=== PATIENT | male | born 1995 | race Caucasian/White ===

== ENCOUNTER 2017-01-08 20:50 | Emergency (ER) | payer BC ==
[~2017-01-08] VITALS: Ht 182.9 cm; Wt 70.3 kg
[~2017-01-08 20:50] MED LIST: AMOXIL250 MG/5 M PO; CEFDINIR300 M1 PO; CORTISPORIN (GE10 M1 OT; FERROUS SULFAT325 M2 PO; IBU800 MG PO; MEDROL 4MG. DOSE4 MG PO; PROMETHAZINE D473 ML PO; TYLENOL W/120 ML/BOT PO; ZITHROMAX Z PA250 MG PO
--- NOTE | 2017-01-08 21:15 | Emergency Room Report ---
History of Present Illness Time Seen by 2100 Presenting Problem in Triage Pt arrived:Walked Presenting Problem:HIT RIGHT FOOT ON COFFEE TABLE,C/O PAIN TO RIGHT 4 DIGIT Onset of symptoms date/time:01/08/17 or onset unknown for: Treatment Prior to Arrival: [employer] Provided by: Sepsis Risk Assessment: Temp: 98.7 B/P: MAP: Pulse: 54 Resp: 18 Recent fever? N Clinical Suspician of Infection? N Mental Status: 1 - Regular (Normal Baseline) Sepsis Risk:Low Sepsis Risk Have you (or family members/close friends) recently traveled outside the [place]? N If Yes, where/when: Have you had exposure to infectious disease within the past month? N TB? Other? Specify: Source patient, RN notes reviewed, family, old records Exam Limitations no limitations Comment acute injury to rt foot this pm - mick 4th toe Cardiac Chest Pain Chest pain indicative of cardiac No Timing/Duration this evening Severity moderate ALLERGIES Coded Allergies: No Known Allergies (06/29/15) Home Medications Reported Medications No Known Home Medications History Medical History General CAD? No Angina: No UT: No Hypertension? No Hyperlipidemia? No CHF? No DVT? No PE? No COPD? No Asthma? Yes Anemia? No GERD? No Gastric ulcers? No GI Bleed? No Hernia? No Thyroid Problems? No Hypothyroidism? No CVA? No Seizures? No Diabetes? No Renal Insuffiency? No End Stage Renal Disease? No UTI? No Stones? No BPH? No GB Disease: No Nephritic Syndrome? No Asplenia? No Hepatitis? No Sickle Cell Disease? No Arthritis? No Migraines? No Cataracts? No Glaucoma? No MRSA? No HIV? No TB? No Anxiety? No Depression? No Cancer? No More? No Immunization Hx DT/Tetanus 5-10 Years Ago Surgical Hx Previous Surgery?N Family History Family Hx Diabetes Yes Hypertension Yes Cancer Yes TB No Social History Smoking Hx Smoker: Never Smoker Tobacco: No Packs/day N/A Alcohol Alcohol: No Drugs none Review of Systems All Other Systems Reviewed and Negative Constitutional denies fever Eyes denies drainage ENT denies: ear discharge, epistaxis, throat pain. Respiratory denies cough, denies shortness of breath, denies wheezing Cardiovascular denies chest pain, denies syncope Gastrointestinal denies abdominal pain, denies diarrhea, denies vomiting Genitourinary denies: dysuria, frequency, hesitancy. Musculoskeletal see HPI, denies back pain, joint pain, joint swelling, denies neck pain Skin denies rash Psychiatric/Neurological denies headache, denies seizure Physical Exam Vital Signs Vital Signs Date Time Temp Pulse Resp B/P Pulse O2 O2 Flow FiO2 Ox Delivery Rate 01/08 2055 98.7 54 18 97 - WBC >12,000 or <4,000 or 10% bands? 2 or more SIRS Criteria Met? B/P: MAP: Creatinine >2.0? UA output<0.5ml/kg/hr for 2 hrs? Platelet count >100,000? Lactate >2.0mmol/1? INR >1.2 or PTT > than 60 sec? Evidence of Organ Dysfunction? Provider documented clinical suspician of infection? N Sepsis Criteria Count: 0 Sepsis Risk: Low Sepsis Risk General Appearance no apparent distress Eye Exam - bilateral eye PERRL, bilateral eye EOMI Ear, Nose, Throat normal ENT inspection Neck supple Respiratory Status No: respiratory distress. 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 No Results/Orders Current Medication Orders Sig/Mike Start time Last Medication Dose Route Stop Time Status Admin Ibuprofen 600 MG ONCE ONE 01/08 2100 DC 01/08 PO 01/08 Ibuprofen 0 .STK-MED ONE 01/08 2055 DC PO Orders Procedure Date/time Status FOOT-RT-3 VIEWS 01/08 2101 Active XRAY/CT/US XRAY/CT/US XRAY foot XR interpretation by reviewed by me Xray Results abnormal (fx seen) Departure Departure Time of Disposition 2112 Disposition DC Home or Self Care(routine) Clinical Impression Primary Impression: Fracture of toe of right foot Qualifiers: Encounter type: initial encounter Toe: lesser toe Fracture type: closed Phalanx: proximal Fracture alignment: displaced Qualified Code: S92.511A - Displaced fracture of proximal phalanx of right lesser toe(s), initial encounter for closed fracture Condition STABLE Referrals OWEN BEDOLLA DPM discussed with dr bedolla Patient Instructions DI for Toe Fracture Additional Instructions see podiatry in am call at [phone] Discharge Counseling Counseled pt/family regarding diagnosis, test results, medications/RX, follow up needs Prescriptions Current Visit Scripts No Known Home Medications ED Critical Care Critical Care No at 5802
--- OUTSIDE RECORDS SUMMARY | 2017-01-08 21:19 | External Medical Summary Rpt | CCD ---
Author Author , KVNG CALDERON Address Unknown Phone [email or web address] Care Team Providers Care Lighter Name Role Phone [facility] Unavailable Unavailable [id number] # [phone], [facility] [id number] # [phone] Purpose Continuity of Care Document - 04-27-2009 through 2016 Medications Na ND Rx Da Fi Fi Am Da Di Ph RX Ph St me C No te ll ll ou ys ag ar # ys at rm s nt no ma ic us Or Da si cy ia de te s n re d 00 09 01 6 30 30 RI 84 CO Ac 95 -1 -2 .0 TE 98 MM ti 51 4- 8- 00 80 UN ve 02 20 20 AI IT 59 10 11 D Y 0 PH AL AR LE MA RG CY Y & 03 93 TH 8 MA # 03 PS 93 C 00 09 01 6 30 30 RI 84 CO Ac 00 -1 -2 .0 TE 98 MM ti 60 4- 8- 00 79 UN ve 11 20 20 AI IT 73 10 11 D Y 1 PH AL AR LE MA RG CY Y & 03 93 TH 8 MA # 03 PS 93 C 00 06 01 6 0. 30 RI 83 CO Ac 08 -1 -2 24 TE 75 MM ti 51 0- 8- 0 16 UN ve 34 20 20 AI IT 10 10 11 D Y 3 PH AL AR LE MA RG CY Y & 03 93 TH 8 MA # 03 PS 93 C 00 09 01 6 30 30 RI 84 MA Ac 95 -1 -2 .0 TE 98 SH ti 51 4- 8- 00 80 BU ve 02 20 20 AI RN 59 10 11 D 0 PH AM AR Y MA B CY 03 93 8 # 03 93 00 09 01 6 30 30 RI 84 MA Ac 00 -1 -2 .0 TE 98 SH ti 60 4- 8- 00 79 BU ve 11 20 20 AI RN 73 10 11 D 1 PH AM AR Y MA B CY 03 93 8 # 03 93 00 06 01 6 0. 30 RI 83 MA Ac 08 -1 -2 24 TE 75 SH ti 51 0- 8- 0 16 BU ve 34 20 20 AI RN 10 10 11 D 3 PH AM AR Y MA B CY 03 93 8 # 03 93 00 01 01 6 30 30 RI 86 MA Ac TE 03 -2 -2 .0 TE 72 SH ti UT 70 0- 0- 00 16 BU ve O 24 20 20 AI RN 0. 33 11 11 D 15 0 PH AM % AR Y NA MA B SA CY L SP 03 RA 93 Y 8 # 03 93 00 09 12 6 30 30 RI 84 MA Ac 02 -1 -2 .0 TE 98 SH ti 45 4- 7- 00 80 BU ve 80 20 20 AI RN 09 10 10 D 0 PH AM AR Y MA B CY 03 93 8 # 03 93 00 09 12 6 30 30 RI 84 MA Ac 00 -1 -2 .0 TE 98 SH ti 60 4- 7- 00 79 BU ve 11 20 20 AI RN 73 10 10 D 1 PH AM AR Y MA B CY 03 93 8 # 03 93 00 06 12 6 0. 30 RI 83 MA Ac 08 -1 -2 24 TE 75 SH ti 51 0- 7- 0 16 BU ve 34 20 20 AI RN 10 10 10 D 3 PH AM AR Y MA B CY 03 93 8 # 03 93 FL 00 02 12 6 16 30 RI 81 MA Ac UT 05 -0 -2 .0 TE 97 SH ti IC 43 2- 7- 00 79 BU ve 27 20 20 AI RN ON 09 10 10 D E 9 PH AM UT AR Y OP MA B CY 50 03 MC 93 G 8 SP # RA 03 Y 93 00 09 12 6 30 30 RI 84 CO Ac 02 -1 -2 .0 TE 98 MM ti 45 4- 7- 00 80 UN ve 80 20 20 AI IT 09 10 10 D Y 0 PH AL AR LE MA RG CY Y & 03 93 TH 8 MA # 03 PS 93 C 00 09 12 6 30 30 RI 84 CO Ac 00 -1 -2 .0 TE 98 MM ti 60 4- 7- 00 79 UN ve 11 20 20 AI IT 73 10 10 D Y 1 PH AL AR LE MA RG CY Y & 03 93 TH 8 MA # 03 PS 93 C 00 06 12 6 0. 30 RI 83 CO Ac 08 -1 -2 24 TE 75 MM ti 51 0- 7- 0 16 UN ve 34 20 20 AI IT 10 10 10 D Y 3 PH AL AR LE MA RG CY Y & 03 93 TH 8 MA # 03 PS 93 C 00 09 11 6 30 30 RI 84 CO Ac 02 -1 -1 .0 TE 98 MM ti 45 4- 4- 00 80 UN ve 80 20 20 AI IT 09 10 10 D Y 0 PH AL AR LE MA RG CY Y & 03 93 TH 8 MA # 03 PS 93 C 00 09 11 6 30 30 RI 84 CO Ac 00 -1 -1 .0 TE 98 MM ti 60 4- 4- 00 79 UN ve 11 20 20 AI IT 73 10 10 D Y 1 PH AL AR LE MA RG CY Y & 03 93 TH 8 MA # 03 PS 93 C 00 06 11 6 0. 30 RI 83 CO Ac 1 -1 24 TE 75 MM ti 51 0- 4- 0 16 UN ve 34 20 20 AI IT 10 10 10 D Y 3 PH AL AR LE MA RG CY Y & 03 93 TH 8 MA # 03 PS 93 C 00 09 11 6 30 30 RI 84 MA Ac 02 -1 -1 .0 TE 98 SH ti 45 4- 4- 00 80 BU ve 80 20 20 AI RN 09 10 10 D 0 PH AM AR Y MA B CY 03 93 8 # 03 93 00 09 11 6 30 30 RI 84 MA Ac 1 -1 .0 TE 98 SH ti 60 4- 4- 00 79 BU ve 11 20 20 AI RN 73 10 10 D 1 PH AM AR Y MA B CY 03 93 8 # 03 93 00 06 11 6 0. 30 RI 83 MA Ac -1 24 TE 75 SH ti 51 0- 4- 0 16 BU ve 34 20 20 AI RN 10 10 10 D 3 PH AM AR Y MA B CY 03 93 8 # 03 93 FL 00 02 11 6 16 30 RI 81 MA Ac UT 05 -0 -1 .0 TE 97 SH ti IC 43 2- 4- 00 79 BU ve 27 20 20 AI RN ON 09 10 10 D E 9 PH AM UT AR Y OP MA B CY 50 03 MC 93 G 8 SP # RA 03 Y 93 AM 00 09 09 22 10 RI 85 MA Ac OX 09 -2 -2 5. TE 16 SH ti IC 34 7- 7- 00 71 BU ve IL 16 20 20 0 AI RN LI 17 10 10 D N 8 PH AM 40 AR Y 0 MA B MG CY /5 03 ML 93 8 LARIOS # SP 03 93 FL 00 02 09 6 16 30 RI 81 MA Ac UT 05 -0 -1 .0 TE 97 SH ti IC 43 2- 6- 00 79 BU ve 27 20 20 AI RN ON 09 10 10 D E 9 PH AM UT AR Y OP MA B CY 50 03 MC 93 G 8 SP # RA 03 Y 93 00 09 09 6 30 30 RI 84 MA Ac 02 -1 -1 .0 TE 98 SH ti 45 4- 4- 00 80 BU ve 80 20 20 AI RN 09 10 10 D 0 PH AM AR Y MA B CY 03 93 8 # 03 93 00 09 09 6 30 30 RI 84 MA Ac 00 -1 -1 .0 TE 98 SH ti 60 4- 4- 00 79 BU ve 11 20 20 AI RN 73 10 10 D 1 PH AM AR Y JADA B CY 03 93 8 # 03 93 00 09 09 6 30 30 RI 84 CO Ac 02 -1 -1 .0 TE 98 MM ti 45 4- 4- 00 80 UN ve 80 20 20 AI IT 09 10 10 D Y 0 PH AL AR REGGIE COREAS CY Y & 03 93 TH 8 MA # 03 PS 93 C 00 09 09 6 30 30 RI 84 CO Ac 00 -1 -1 .0 TE 98 MM ti 60 4- 4- 00 79 UN ve 11 20 20 AI IT 73 10 10 D Y 1 PH AL AR LE JADA RG CY Y & 03 93 TH 8 MA # 03 PS 93 C 00 06 08 6 30 30 RI 83 CO Ac 00 -1 -1 .0 TE 75 MM ti 60 0- 7- 00 19 UN ve 11 20 20 AI IT 73 10 10 D Y 1 PH AL AR REGGIE ELIAS RG CY Y & 03 93 TH 8 MA # 03 PS 93 C 00 06 08 6 0. 30 RI 83 CO Ac 08 -1 -1 24 TE 75 MM ti 51 0- 7- 0 16 UN ve 34 20 20 AI IT 10 10 10 D Y 3 PH AL AR REGGIE COREAS CY Y & 03 93 TH 8 MA # 03 PS 93 C 00 02 08 6 30 30 RI 81 CO Ac 02 -0 -1 .0 TE 97 MM ti 45 2- 7- 00 67 UN ve 80 20 20 AI IT 09 10 10 D Y 0 PH AL AR LE JADA RG CY Y & 03 93 TH 8 MA # 03 PS 93 C 00 06 08 6 30 30 RI 83 MA Ac 00 -1 -1 .0 TE 75 SH ti 60 0- 7- 00 19 BU ve 11 20 20 AI RN 73 10 10 D 1 PH AM AR Y MA B CY 03 93 8 # 03 93 FL 00 06 08 6 16 30 RI 83 MA Ac UT 05 -1 -1 .0 TE 75 SH ti IC 43 0- 7- 00 17 BU ve 27 20 20 AI RN ON 09 10 10 D E 9 PH AM UT AR Y OP MA B CY 50 03 MC 93 G 8 SP # RA 03 Y 93 00 06 08 6 0. 30 RI 83 MA Ac 08 -1 -1 24 TE 75 SH ti 51 0- 7- 0 16 BU ve 34 20 20 AI RN 10 10 10 D 3 PH AM AR Y MA B CY 03 93 8 # 03 93 00 02 08 6 30 30 RI 81 MA Ac 02 -0 -1 .0 TE 97 SH ti 45 2- 7- 00 67 BU ve 80 20 20 AI RN 09 10 10 D 0 PH AM AR Y MA B CY 03 93 8 # 03 93 XO 63 02 08 3 15 30 RI 81 MA Ac PE 40 -0 -1 .0 TE 97 SH ti NE 20 2- 7- 00 64 BU ve X 51 20 20 AI RN HF 00 10 10 D A 1 PH AM 45 AR Y MA B MC CY G IN 03 SAMAYOA 93 LE 8 R # 03 93 XO 63 02 08 6 14 16 RI 81 MA Ac PE 40 -0 -1 4. TE 97 SH ti NE 20 2- 7- 00 63 BU ve X 51 20 20 0 AI RN 1. 32 10 10 D 25 4 PH AM AR Y MG MA B /3 CY ML 03 93 SO 8 BRITNEY # TI 03 ON 93 00 06 06 6 30 30 RI 83 CO Ac 00 -1 -1 .0 TE 75 MM ti 60 0- 0- 00 19 UN ve 11 20 20 AI IT 73 10 10 D Y 1 PH AL AR LE MA RG CY Y & 03 93 TH 8 MA # 03 PS 93 C 00 06 06 6 30 30 RI 83 CO Ac 02 -1 -1 .0 TE 75 MM ti 45 0- 0- 00 18 UN ve 80 20 20 AI IT 09 10 10 D Y 0 PH AL AR LE MA RG CY Y & 03 93 TH 8 MA # 03 PS 93 C 00 06 06 6 0. 30 RI 83 CO Ac 08 -1 -1 24 TE 75 MM ti 51 0- 0- 0 16 UN ve 34 20 20 AI IT 10 10 10 D Y 3 PH AL AR LE MA RG CY Y & 03 93 TH 8 MA # 03 PS 93 C 00 06 06 6 30 30 RI 83 MA Ac 00 -1 -1 .0 TE 75 SH ti 60 0- 0- 00 19 BU ve 11 20 20 AI RN 73 10 10 D 1 PH AM AR Y MA B CY 03 93 8 # 03 93 00 06 06 6 30 30 RI 83 MA Ac 02 -1 -1 .0 TE 75 SH ti 45 0- 0- 00 18 BU ve 80 20 20 AI RN 09 10 10 D 0 PH AM AR Y MA B CY 03 93 8 # 03 93 FL 00 06 06 6 16 30 RI 83 MA Ac UT 05 -1 -1 .0 TE 75 SH ti IC 43 0- 0- 00 17 BU ve 27 20 20 AI RN ON 09 10 10 D E 9 PH AM UT AR Y OP MA B CY 50 03 MC 93 G 8 SP # RA 03 Y 93 00 06 06 6 0. 30 RI 83 MA Ac 08 -1 -1 24 TE 75 SH ti 51 0- 0- 0 16 BU ve 34 20 20 AI RN 10 10 10 D 3 PH AM AR Y MA B CY 03 93 8 # 03 93 00 02 04 6 30 30 RI 81 MA Ac 02 -0 -0 .0 TE 97 SH ti 45 2- 7- 00 67 BU ve 80 20 20 AI RN 09 10 10 D 0 PH AM AR Y MA B CY 03 93 8 # 03 93 XO 63 02 04 3 15 30 RI 81 MA Ac PE 40 -0 -0 .0 TE 97 SH ti NE 20 2- 7- 00 64 BU ve X 51 20 20 AI RN HF 00 10 10 D A 1 PH AM 45 AR Y MA B MC CY G IN 03 SAMAYOA 93 LE 8 R # 03 93 XO 63 02 04 6 14 16 RI 81 MA Ac PE 40 -0 -0 4. TE 97 SH ti NE 20 2- 7- 00 63 BU ve X 51 20 20 0 AI RN 1. 32 10 10 D 25 4 PH AM AR Y MG MA B /3 CY ML 03 93 SO 8 BRITNEY # TI 03 ON 93 00 02 04 6 30 30 RI 81 CO Ac 02 -0 -0 .0 TE 97 MM ti 45 2- 7- 00 67 UN ve 80 20 20 AI IT 09 10 10 D Y 0 PH AL AR LE MA RG CY Y & 03 93 TH 8 MA # 03 PS 93 C 00 11 04 2 30 30 RI 81 NO Ac 00 -3 -0 .0 TE 10 RF ti 60 0- 7- 00 52 LE ve 11 20 20 AI ET 73 09 10 D R 1 PH AR HE MA NR CY Y 03 93 8 # 03 93 00 03 03 6 30 30 RI 82 MA Ac TE 03 -0 -0 .0 TE 39 SH ti UT 70 4- 4- 00 95 BU ve O 24 20 20 AI RN 0. 33 10 10 D 15 0 PH AM % AR Y NA MA B SA CY L SP 03 RA 93 Y 8 # 03 93
--- OUTSIDE RECORDS SUMMARY | 2017-01-08 21:19 | External Medical Summary Rpt | CCD ---
Author Author , KVNG CALDERON Address Unknown Phone [email or web address] Care Team Providers Care Heavy Equipment Supervisor Name Role Phone [facility] Unavailable Unavailable [id number] # [phone], [facility] [id number] # [phone] Purpose Continuity of Care Document [...] -2 -2 .0 TE 72 SH ti MD 70 0- 0- 00 16 BU ve [...] 10 10 D E 9 PH AM MD AR Y OP MA B CY 50 [...] 10 10 D E 9 PH AM MD AR Y OP MA B CY 50 [...] 10 10 D E 9 PH AM MD AR Y OP MA B CY 50 [...] 10 10 D E 9 PH AM MD AR Y OP MA B CY 50 [...] 10 10 D E 9 PH AM MD AR Y OP MA B CY 50 [...] -0 -0 .0 TE 39 SH ti MD 70 4- 4- 00 95 BU ve O 24 20 20 AI RN 0. 33 10 10 D 15 0 PH AM % AR Y NA MA B SA CY L SP 03 RA 93 Y 8 # 03 93
--- OUTSIDE RECORDS SUMMARY | 2017-01-08 21:21 | External Medical Summary Rpt | CCD ---
Demographics Preferred Language Setswana Marital Status Unknown Faith Affiliation Unknown Race Unknown Ethnic Group Unknown Author Author , KVNG CALDERON Address Unknown Phone [email or web address] Care Team Providers Care Operation Supervisor Name Role Phone [facility] Unavailable Unavailable [id number] # [phone], [facility] [id number] # [phone] Purpose Continuity of Care Document - 04-27-2009 through 2016 Medications Na ND Rx Da Fi Fi Am Da Di Ph RX Ph St me C No te ll ll ou ys ag ar # ys at rm s nt no ma ic us Or Da si cy ia de te s n re d 00 06 01 6 0. 30 RI [...] 6 0. 30 RI 83 MA Ac -2 24 TE 75 SH ti 51 [...] -2 -2 .0 TE [address] 70 0- 0- 00 16 BU ve O 24 20 20 AI RN 0. 33 11 11 D 15 0 PH AM % AR Y NA MA B SA CY L SP 03 RA 93 Y 8 # 03 93 FL 00 02 12 6 16 30 RI 81 MA Ac UT 05 -0 -2 .0 TE 97 SH ti IC 43 2- 7- 00 79 BU ve 27 20 20 AI RN ON 09 10 10 D E [address] AR Y OP MA B CY 50 03 MC 93 G 8 SP # RA 03 Y 93 00 06 12 6 0. 30 [...] D Y 3 PH AL AR LE JADA RG CY [...] D Y 0 PH AL AR REGGIE ELIAS RG CY Y & 03 93 TH 8 MA # 03 PS 93 C FL 00 02 11 6 16 30 RI 81 MA Ac UT 05 -0 -1 .0 TE 97 SH ti IC 43 2- 4- 00 79 BU ve 27 20 20 AI RN ON 10 10 D E [address] AR Y OP MA B CY 50 03 MC 93 G 8 SP # RA 03 Y 93 00 06 11 6 0. 30 [...] CY 03 93 8 # 03 93 AM 00 09 09 22 10 [...] ve 27 20 20 AI RN ON 10 10 D E [address] AR Y OP MA B CY 50 03 MC 93 G 8 SP # RA 03 Y 93 00 09 09 6 30 30 RI 84 MA Ac 00 -1 -1 .0 TE 98 SH ti 60 4- 4- 00 79 BU ve 11 20 20 AI RN 73 10 10 D 1 PH AM AR Y JADA [place] CY 03 93 8 # 03 93 00 09 09 6 30 30 RI 84 MA Ac 02 -1 -1 .0 TE 98 SH ti 45 4- 4- 00 80 BU ve 80 20 20 AI RN 09 10 10 D 0 PH AM AR Y JADA [place] CY 03 93 8 # 03 93 00 09 09 6 30 30 RI 84 CO Ac 00 -1 -1 .0 TE 98 MM ti 60 4- 4- 00 79 UN ve 11 20 20 AI IT 73 10 10 D Y 1 PH AL AR REGGIE COREAS CY Y & 03 93 TH 8 MA # 03 PS 93 C 00 09 09 6 30 30 RI 84 CO Ac 02 -1 -1 .0 TE 98 MM ti 45 4- 4- 00 80 UN ve 80 20 20 AI IT 09 10 10 D Y 0 PH AL AR REGGIE ELIAS RG CY [...] 8 MA # 03 PS 93 C FL 00 06 08 6 16 30 RI 83 MA Ac UT 05 -1 -1 .0 TE 75 SH ti IC 43 0- 7- 00 17 BU ve 27 20 20 AI RN ON 09 10 10 D E [address] AR Y OP MA B CY 50 03 MC 93 G 8 SP # RA 03 Y 93 00 06 08 6 30 30 RI [...] 8 BRITNEY # TI 03 ON 93 XO 63 02 08 3 15 30 RI 81 MA Ac PE 40 -0 -1 .0 TE 97 SH ti NE 20 2- 7- 00 64 BU ve X 51 20 20 AI RN HF 00 10 10 D A 1 PH AM 45 AR Y MA B MC CY G IN 03 SAMAYOA 93 LE 8 R # 03 93 00 02 08 6 30 30 RI 81 MA Ac 02 -0 -1 .0 TE 97 SH ti 45 2- 7- 00 67 BU ve 80 20 20 AI RN 09 10 10 D 0 PH AM AR Y MA B CY 03 93 8 # 03 93 00 06 08 6 0. 30 [...] # 03 93 00 06 06 6 0. 30 [...] 10 10 D E [address] AR Y OP MA B CY 50 03 MC 93 G 8 SP # RA 03 Y 93 00 06 06 6 30 30 [...] D Y 3 PH AL AR LE JADA RG CY Y & 03 93 TH 8 MA # 03 PS 93 C 00 02 04 6 30 30 RI 81 CO Ac 02 -0 -0 .0 TE 97 MM ti 45 2- 7- 00 67 UN ve 80 20 20 AI IT 09 10 10 D Y 0 PH AL AR LE JADA RG CY Y & 03 93 TH 8 MA # 03 PS 93 C XO 63 02 04 6 14 16 RI 81 MA Ac PE 40 -0 -0 4. TE 97 SH ti NE 20 2- 7- 00 63 BU ve X 51 20 20 0 AI RN 1. 32 10 10 D 25 4 PH AM AR Y MG MA B /3 CY ML 03 93 SO 8 BRITNEY # TI 03 ON 93 XO 63 02 04 3 15 30 RI 81 MA Ac PE 40 -0 -0 .0 TE 97 SH ti NE 20 2- 7- 00 64 BU ve X 51 20 20 AI RN HF 00 10 10 D A 1 PH AM 45 AR Y MA B MC CY G IN 03 SAMAYOA 93 LE 8 R # 03 93 00 02 04 6 30 30 RI 81 MA Ac 02 -0 -0 .0 TE 97 SH ti 45 2- 7- 00 67 BU ve 80 20 20 AI RN 09 10 10 D 0 PH AM AR Y MA B CY 03 93 8 # 03 93 00 11 04 2 30 30 RI [...] -0 -0 .0 TE [address] 70 4- 4- 00 95 BU ve O 24 20 20 AI RN 0. 33 10 10 D 15 0 PH AM % AR Y NA MA B SA CY L SP 03 RA 93 Y 8 # 03 93
--- OUTSIDE RECORDS SUMMARY | 2017-01-08 21:21 | External Medical Summary Rpt | CCD ---
Author Author , KVNG Maria KVNG Address Unknown Phone [email or web address] Immunization Name Date Rout CVX Reac Dose Comm Prov Is Faci e tion ent ider Refu lity Give sed n Tdap 06-1 115 999 Hist H149 No H149 , 2-20 oric Adso 06 al rbed Info rmat ion - Sour ce Unsp ecif ied DTaP 12-1 107 999 Hist H149 No H149 , UF 6-19 oric 99 al Info rmat ion - Sour ce Unsp ecif ied Yung 12-1 2 999 Hist H149 No H149 o-OP 6-19 oric V 99 al Info rmat ion - Sour ce Unsp ecif ied MMR 12-1 3 999 Hist H149 No H149 6-19 oric 99 al Info rmat ion - Sour ce Unsp ecif ied Hib, 02-1 17 999 Hist H149 No H149 UF 0-19 oric 98 al Info rmat ion - Sour ce Unsp ecif ied DTaP 02-1 107 999 Hist H149 No H149 , UF 0-19 oric 98 al Info rmat ion - Sour ce Unsp ecif ied Hep 10-1 8 999 Hist H149 No H149 B, 6-19 oric ped/ 97 al adol Info rmat ion - Sour ce Unsp ecif ied MMR 08-0 3 999 Hist H149 No H149 8-19 oric 97 al Info rmat ion - Sour ce Unsp ecif ied Hib, 08-0 17 999 Hist H149 No H149 UF 8-19 oric 97 al Info rmat ion - Sour ce Unsp ecif ied Yung 08-0 2 999 Hist H149 No H149 o-OP 8-19 oric V 97 al Info rmat ion - Sour ce Unsp ecif ied DTaP 08-0 107 999 Hist H149 No H149 , UF 8-19 oric 97 al Info rmat ion - Sour ce Unsp ecif ied Yung 01-2 2 999 Hist H149 No H149 o-OP 5-19 oric V 96 al Info rmat ion - Sour ce Unsp ecif ied DTP- 01-2 22 999 Hist H149 No H149 Hib 5-19 oric 96 al Info rmat ion - Sour ce Unsp ecif ied
--- OUTSIDE RECORDS SUMMARY | 2017-01-08 21:21 | External Medical Summary Rpt | CCD ---
Demographics Preferred Language Telugu Marital Status Unknown Sikh Affiliation Unknown Race Unknown Ethnic Group Unknown Author Author , KVNG CALDERON Address Unknown Phone [email or web address] Care Team Providers Care Park Keeper Name Role Phone [facility] Unavailable Unavailable [id number] # [phone], [facility] [phone] # [phone] Purpose Continuity of Care Document - 04-27-2009 [...] -2 -2 .0 TE 72 SH ti GA 70 0- 0- 00 16 BU ve [...] 10 10 D E 9 PH AM GA AR Y OP MA B CY 50 [...] 10 10 D E 9 PH AM GA AR Y OP MA B CY 50 [...] 10 10 D E 9 PH AM GA AR Y OP MA B CY 50 [...] 10 10 D E 9 PH AM GA AR Y OP MA B CY 50 [...] 10 10 D E 9 PH AM GA AR Y OP MA B CY 50 [...] -0 -0 .0 TE 39 SH ti GA 70 4- 4- 00 95 BU ve O 24 20 20 AI RN 0. 33 10 10 D 15 0 PH AM % AR Y NA MA B SA CY L SP 03 RA 93 Y 8 # 03 93
--- OUTSIDE RECORDS SUMMARY | 2017-01-08 21:21 | External Medical Summary Rpt | CCD ---
Author Author , KVNG Maria KVNG Address Unknown Phone [email or web address] Immunization Name Date Rout CVX Reac Dose [...]
--- NOTE | 2017-01-09 05:41 | RADIOLOGY REPORT PS360 ---
FOOT-RT-3 VIEWS HISTORY: Pain and swelling following injury C/O PAIN. AREA SWOLLEN ORDERING PHYSICIAN: Yelitza Boyle MD PATIENT AGE: 21 years COMPARISON: 06/02/2014 FINDINGS: There is an oblique nondisplaced fracture involving the mid shaft of the proximal phalanx of the fourth toe. There are dysplastic changes involving the distal aspect of the fourth metatarsal which may be due to old injury or avascular process. Sclerosis of the neck of the talus once again noted not significantly changed. IMPRESSION: 1. Acute nondisplaced fracture of the proximal phalanx of the fourth toe. 2. 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
[2017-01-20] MEDS ORDERED: IBU800 MG (13:52)
== END 2017-01-08 21:37 | disposition home or self-care (01) ==
LOC: ER 20:50
DX: S92.511A Displaced fracture of proximal phalanx of right lesser toe(s), initial encounter for closed fracture (principal); J45.909 Unspecified asthma, uncomplicated

== ENCOUNTER 2017-01-10 08:32 | Day surgery (SDC) | payer BC ==
--- NOTE | 2017-01-10 11:52 | Anesthesia Record ---
Anesthesia Record Part I Total IV fluids: 1800 EBL (ml): 0 Urine Output: 0 B/P: 123/80 % SaO2: 96 Pulse: 70 Resps: 12 Temp: 97.4 Patient is: Awake, Stable Stable to PACU at: 1150 at 1152
--- NOTE | 2017-01-10 11:52 | Anesthesia Record ---
Anesthesia Record Part II Discharge time: 1220 Destination: Same day surgery PACU nurse assessment review? Yes Patient is: Awake, Stable Anesthesia complications? No at 1154
--- NOTE | 2017-01-10 12:40 | Operative Note-Podiatry ---
Procedure/Operative Record Procedure DATE OF PROCEDURE 01/10/17 PREOPERATIVE DIAGNOSIS Right 4th proximal phalanx fracture Right 4th metatarsal head contusion, post traumatic osteoarthritis (AVN) POSTOPERATIVE DIAGNOSIS Right 4th proximal phalanx fracture Right 4th metatarsal head avascular necrosis PROCEDURE PERFORMED Right Open Reduction Internal Fixation 4th digit Right 4th Metatarsal Head Replacement (with implant) SURGEON Pedro BOYKIN,Owen ANESTHESIA General 30cc 0.5% marcaine plain EBL (ml) 10 OPERATIVE NOTE/DISCHARGE/PLAN Indication for Procedure: Mr. Dolan is a 21 y/o male who presents with pain to the right 4th toe and 4th MPJ. Patient states that 01/08/17 he was at home and tripped caught his foot on the coffee table and stubbed the toe. He has a history of injury to the right fourth metatarsal in May 2014, when he jumped off the back of the truck and landed on the foot weird. He broke the metatarsal head. He denies being in a shoe or nonweightbearing. Patient has pain to the right fourth MPJ 2 years. He now has increased pain as well as the 4th toe rotating and sticking upward. Patient went to the ER. X-rays of right foot show a nondisplaced right fourth proximal phalanx fracture with changes to the 4th metatarsal head suspicious for old injury versus avascular necrosis. Conservative treatment discussed but not recommended due to the deformity: shortened and rotated 4th toe. We discussed surgery to reduce the fracture and pin it straight. We all discussed evaluating the 4th met head and possibly microfracturing or replacing the head. All risks and benefits were discussed including but not limited to: damage to blood vessels and nerves, bleeding, infection, wound complications, delayed or non-union of bone, post-traumatic arthritis, need for further surgery, need for removal of the implant, prolonged swelling of the extremity, prolonged pain, RSD/CRPS, DVT, and anesthetic complications. No guarantees were given. All questions fully answered. The patient verbalized understanding and agreed to proceed with surgery. Consent was obtained. On this date and time patient was deemed an appropriate surgical candidate. With informed consent signed, the patient was taken to the operating theater. The patient was positioned supine. General anesthesia was induced. Tourniquet was applied to the right mid-calf. Right 4th Metatarsal Head Replacement (with Implant): The right lower extremity was prepped and draped in normal sterile fashion. Attention was directed to the 4th metatarsophalangeal joint (MPJ), where a dorsal linear incision was mapped out extending proximal to the 4th PIPJ to proximal on the met shaft. The tourniquet was inflated at 225 mmHg. Dissection was carried thru skin and subcutaneous tissue with care taken to maintain surgical hemostasis and safely retract neurovascular structures. Dissection was then carried through deep fascia linearly exposing the met head. There was severe arthritic changes noted with wearing down of the cartilage on the metatarsal head. And there was a large joint osteophyte medially which was removed. The met head was sclerotic and there was contracture of the MPJ. A McGlamry elevator was used to pass underneath the metatarsal heads releasing contracture. Utilizing a saw, the met head was removed and sent to pathology as a specimen. The metatarsal head was then prepared for the implant in standard technique. The wound was flushed with copious amounts of saline. A trial implant was placed, intra operatively fluoroscopy was used to check position and temporary fixation inserted. DailyLook lesser metatarsal implant was inserted. Good apposition and position was noted. X-ray confirmed position and hardware stable. The wound was flushed. Right Open Reduction Internal Fixation 4th Digit: Attention was directed distally to the proximal phalanx, the fracture was noted. The fracture was rotated and in a spiral oblique pattern. The proximal phalanx was shortened and impacted. The fracture was debrided and reduced. At this point a 0.045 K wire was inserted to hold the reduction. Final intra op x-ray used to confirm reduction and pin position. The wound was once again flushed with copious amounts of saline. 3-0 Vicryl was used to close deep tissue. 4-0 Vicryl was used to close subq layer in a running fashion. Viaflow was inserted into the incision. Then the skin was closed with 4-0 Nylon in an interrupted mattress fashion. 30 cc 0.5% marcaine plain used in a regional ankle and digital block. The tourniquet was deflated after 67 mins and immediate hyperemic response was noted to the digits. The wounds were cleansed. Xeroform, dry sterile dressing was then applied. The patient was awoken from anesthesia and transferred to recovery with vital signs stable and neurovascular status intact. Specimen: Right 4th metatarsal head (suspicious for AVN) Materials: DailyLook Lesser Metatarsal Head Implant, size 2 Viaflow Discharge/Plan: D/C home today when ready and vital signs stable. Patient is to maintain dressing clean dry and intact. Ice top or right foot and elevate on two pillows. Non weight bearing to the right lower extremity with forefoot offloading post op shoe. Patient has crutches. Rx for [place] 7.5 #28, Zofran, Motrin given. Obtain post op films, right foot, 3 views. Follow up with me in 1 week. at 1701
[2017-01-10 14:31] VITALS: BP 123/67
--- NOTE | 2017-01-11 14:20 | RADIOLOGY REPORT PS360 ---
FOOT-RT-2 VIEWS . HISTORY: POST SURGICAL fracture proximal phalanx fourth toe with old injury fourth MCP joint region Patient Age: 21 years: Male Ordering Physician: OWEN BELTRAN DPM TECHNIQUE: 2 view COMPARISON : 01/08/2017 right foot 3 views. Also 06/02/14 right foot FINDINGS Previous study showed abnormal deformed appearance of the head of the fourth metatarsal more likely from old process. There is also recent longitudinal oblique fracture involving the proximal phalanx and base of such at fourth toe. Current 2 views of the right foot show patient has undergone surgery here with placement of a metallic fourth metatarsal head prosthesis component. The stem from this metatarsal head prosthesis extends into the distal fourth metacarpal. . a K wire which extends along the fourth toe- passing through the distal phalanx, middle phalanx and continuing to the base of the proximal phalanx fourth toe. This provides fixation to the subtle oblique fracture previously noted here... IMPRESSION Placement of a metallic fourth metatarsal head prosthesis, to a corrected previous deformity here K wire has been placed along the fourth toe and extends to the base of the proximal phalanx. Provides fixation to the recent oblique fracture noted here on 01/08/2017 radiograph. .
--- NOTE | 2017-01-11 14:21 | RADIOLOGY REPORT PS360 ---
FOOT-RT-3 VIEWS HISTORY: POST SURGICAL fracture proximal phalanx fourth toe with old injury fourth MCP joint region Patient Age: 21 years: Male Ordering Physician: OWEN BELTRAN DPM TECHNIQUE: 3 views COMPARISON : 01/08/2017 right foot 3 views. Also 06/02/14 right foot FINDINGS Previous study showed abnormal deformed appearance of the head of the fourth metatarsal more likely from old process. There is also recent longitudinal oblique fracture involving the proximal phalanx and base of such at fourth toe. Patient has undergone surgery here with placement of a metallic fourth metatarsal head prosthesis component. The stem from this metatarsal head prosthesis extends into the distal fourth metacarpal. This slight peg like stem passes slightly oblique of the study appears with this tip directed towards the medial/ dorsal aspect distal metaphysis fourth metatarsal. Bone Appear to remain intact to this region. Follow-up lateral films and oblique lateral images will be helpful in follow-up. There is a K wire which extends through the fourth toe- passing through the distal phalanx, middle phalanx and continuing to the base of the proximal phalanx fourth toe. This provides fixation to the subtle oblique fracture previously noted here.. There is a slightly blunted appearance at the medial aspect of base of proximal phalanx fourth toe from the old deformities. The other toes appear to be intact. Suggestion of a minor hallux valgus deformity. The sclerotic area at the dorsal neck of talus again observed and stable since 2015. IMPRESSION Placement of a metallic fourth metatarsal head prosthesis, placed to to a corrected old deformity fourth metatarsal head K wire has been placed along the fourth toe and extends to the base of the proximal phalanx. Provides fixation to the recent oblique fracture noted here on 01/08/2017 radiograph. Other observations in text
[2017-01-20] MEDS ORDERED: IBU800 MG (13:52)
== END 2017-01-10 13:20 | disposition home or self-care (01) ==
LOC: SDC 08:32
PROVIDERS: Podiatrist
PROC: 0SRM0JZ Replacement of Right Metatarsal-Phalangeal Joint with Synthetic Substitute, Open Approach (ICD-10-PCS; 2017-01-10)
PROC: 0QSQ04Z Reposition Right Toe Phalanx with Internal Fixation Device, Open Approach (ICD-10-PCS; principal; 2017-01-10 10:00)
DX: S92.514A Nondisplaced fracture of proximal phalanx of right lesser toe(s), initial encounter for closed fracture (principal); M87.377 Other secondary osteonecrosis, right toe(s); W22.8XXA Striking against or struck by other objects, initial encounter; Y92.009 Unspecified place in unspecified non-institutional (private) residence as the place of occurrence of the external cause; Z87.891 Personal history of nicotine dependence; J45.909 Unspecified asthma, uncomplicated; Z83.3 Family history of diabetes mellitus; Z80.9 Family history of malignant neoplasm, unspecified; Z82.49 Family history of ischemic heart disease and other diseases of the circulatory system; M20.41 Other hammer toe(s) (acquired), right foot
CPT/HCPCS: C1762; J2405; L8641